=== PATIENT | female | born 1930 | race African-American/Black ===

== ENCOUNTER 2017-07-25 15:03 | Observation (INO) | payer OTHER ==
--- NOTE | 2017-07-25 15:15 | PDOC ---
History of Present Illness - General Stated Complaint: CHEST PAIN Time Seen by Provider: 07/25/17 15:14 - History of Present Illness Initial Comments: 07/25/17 15:14 Ms. Delaney is an 87 yo female w/ pmh of HTN who presents complaining of a 6 day history of left sided chest pain. She reports the pain got worse last night however subsequently has mostly resolved. She localizes the pain to under her left breast. Ms. Delaney also reports a 1 month history of dyspnea on exertion as well. The patient denies shortness of breath, headache and dizziness. Denies fever, chills, nausea, vomit, diarrhea and constipation. Denies dysuria, frequency, urgency and hematuria. Allergies: NKDA Past History - Past Medical History Allergies/Adverse Reactions: Allergies Allergy/AdvReac Type Severity Reaction Status Date / Time No Known Allergies Allergy Verified 07/25/17 16:32 Home Medications: Ambulatory Orders Acetaminophen [Tylenol] 325 mg PO Q6H PRN 07/26/17 Aspirin 81 mg PO DAILY 07/26/17 Lisinopril-Hctz 20-25 mg Tab 1 tab PO DAILY 07/26/17 Review of Systems - Review of Systems Comments:: 07/25/17 15:15 GENERAL/CONSTITUTIONAL: No fever or chills. No weakness. HEAD, EYES, EARS, NOSE AND THROAT: No change in vision. No ear pain or discharge. No sore throat. CARDIOVASCULAR: +Chest pain as described. +Dyspnea on exertion RESPIRATORY: No cough, wheezing, or hemoptysis. GASTROINTESTINAL: No nausea, vomiting, diarrhea or constipation. GENITOURINARY: +Increased urinary frequency lately MUSCULOSKELETAL: No joint or muscle swelling or pain. No neck or back pain. SKIN: No rash NEUROLOGIC: No headache, vertigo, loss of consciousness, or change in strength/ sensation. ENDOCRINE: No increased thirst. No abnormal weight change HEMATOLOGIC/LYMPHATIC: No anemia, easy bleeding, or history of blood clots. ALLERGIC/IMMUNOLOGIC: No hives or skin allergy. *Physical Exam - Physical Exam Comments: 07/25/17 15:15 GENERAL: Awake, alert, and fully oriented, in no acute distress HEAD: No signs of trauma, normocephalic, atraumatic EYES: PERRLA, EOMI, sclera anicteric, conjunctiva clear ENT: Auricles normal inspection, hearing grossly normal, nares patent, oropharynx clear without exudates. Moist mucosa NECK: Normal ROM, supple, no lymphadenopathy, JVD, or masses LUNGS: No distress, speaks full sentences, clear to auscultation bilaterally HEART: Regular rate and rhythm, normal S1 and S2, no murmurs, rubs or gallops, peripheral pulses normal and equal bilaterally. ABDOMEN: +Left upper quadrant TTP. Soft, normoactive bowel sounds. No guarding, no rebound. No masses EXTREMITIES: Normal inspection, Normal range of motion, no edema. No clubbing or cyanosis. NEUROLOGICAL: Cranial nerves II through XII grossly intact. Normal speech, normal gait, no focal sensorimotor deficits SKIN: Warm, Dry, normal turgor, no rashes or lesions noted. ED Treatment Course - LABORATORY CBC & Chemistry Diagram: 07/25/17 15:50 07/25/17 15:50 Medical Decision Making - Medical Decision Making 07/25/17 18:55 Ms. Delaney is an 87 yo female w/ pmh as described who presents for evaluation of abdominal pain. CT abdomen sent for evaluation. Patient signed out to Dr. Forte for further evaluation. *DC/Admit/Observation/Transfer Diagnosis at time of Disposition: Chest pain Qualifiers: Chest pain type: unspecified Qualified Code(s): R07.9 - Chest pain, unspecified - Discharge Dispostion Decision to Admit order: Yes - Referrals - Patient Instructions - Post Discharge Activity
[2017-07-25] MEDS ORDERED: SODIUM CHLORIDE 1,000 ML IV STA (15:31)
[2017-07-25] MEDS ORDERED: FAMOTIDINE 20 MG/50 ML IVPB 20 MG/50 ML MG IVPB ONE (15:31)
[2017-07-25] MEDS ORDERED: ACETAMINOPHEN 325 MG TABLET (FP) PO ONE (15:31)
[2017-07-25] MEDS ORDERED: ACETAMINOPHEN 500 MG TABLET (FP) PO ONE (15:31)
--- NOTE | 2017-07-25 15:36 | PDOC ---
Attending Attestation - HPI HPI: 07/25/17 17:22 The patient is an 87-year-old female, with a significant past medical history of HTN, who presents to the ED with 1 week of left-sided chest pain. The patient describes the pain as constant, exacerbated with walking, with associated left ankle swelling. The patient reports that she recently traveled 2 hours on bus from [place]. The patient denies any shortness of breath or palpitations. She denies any fever, chills, nausea, vomiting, diarrhea, or abdominal pain. Allergies: NKA - Physicial Exam PE: 07/25/17 17:43 GENERAL: The patient is in no acute distress. HEAD: Normal with no signs of trauma. EYES: PERRLA, EOMI, sclera anicteric, conjunctiva clear. ENT: Ears normal, nares patent, oropharynx clear without exudates. Moist mucous membranes. NECK: Normal range of motion, supple without lymphadenopathy, JVD, or masses. LUNGS: Breath sounds equal, clear to auscultation bilaterally. No wheezes, and no crackles. HEART:Regular rate and rhythm, normal S1 and S2 without murmur, rub or gallop. ABDOMEN: Soft, nontender, normoactive bowel sounds. No guarding, no rebound. EXTREMITIES: Normal range of motion, no edema. No clubbing or cyanosis. No erythema, or tenderness. NEUROLOGICAL: Cranial nerves II through XII grossly intact. Normal speech. No focal neurological deficits. MUSCULOSKELETAL: Back non-tender to palpation, no CVA tenderness SKIN: Warm, Dry, normal turgor, no rashes or lesions noted. <Jenelle Head - Last Filed: 07/25/17 17:41> - Resident Resident Name: Chris Ca - ED Attending Attestation I have performed the following: I have examined & evaluated the patient, The case was reviewed & discussed with the resident, I agree w/resident's findings & plan, Exceptions are as noted - Medical Decision Making 07/25/17 15:32 EKG: NSR, rate of 97 bpm, [place] nml, no ST elevations or depressions, T waves upright 07/25/17 18:32 Miss Delaney is an 87-year-old female with a history of hypertension who presents emergency department with a complaint of left-sided chest pain. Patient states his symptoms have been present for the past approximately one week. Her symptoms have been bearable over the past week. Her chest pain has been relatively constant, but it did not prevent her from doing her daily activities. She describes her pain as 5/10. Since last night, her chest pain worsened significantly. She was uncomfortable all night, unable to sleep. She states when she has no chest pain that radiates to the back and jaw. No nausea, sometimes she short of breath. Symptoms are worse with exertion. No fevers, chills, cough. Patient traveled recently from [place], she approximates it was a 2 hour trip via car. She notices no new lower extremity edema. She has no prior cardiac history. Patient has had no positive stress tests in the past. Her examination is unremarkable. Will do basic labs. Anticipate this patient will need to stay for rule out OK. Fluid repeat labs, would do cardiology consult <Myriam Joseph - Last Filed: 07/27/17 08:10> Heart Score/ECG Review - History History: Moderately suspicious - Electrocardiogram EKG: Normal - Age Age: >/= 65 - Risk Factors Risk Factors Heart Score: Yes Hx Hypertension Based on the list above the patient has:: 1-2 risk factors - Troponin Troponin: </= normal limit - Score Heart Score - Total: 4 <Bobby Forte - Last Filed: 07/25/17 19:55> Attestations - Attestations 07/25/17 17:44 Documentation prepared by Jenelle Head, acting as claim review medical director for Myriam Joseph MD. <Jenelle Head - Last Filed: 07/25/17 17:41>
[2017-07-25] MEDS ORDERED: ACETAMINOPHEN 325 MG TABLET (FP) ONE (16:17)
[2017-07-25 16:34] LABS: EOS % 3.3 % (0-4.5); HEMOGLOBIN 13.4 GM/dL (10.7-15.3); LYMPH % 39.3 % (8-40); MCH 30.8 pg (25.7-33.7); MCHC 33.5 g/dl (32.0-36.0); MEAN CELL VOLUME 92.2 fl (80-96); MEAN PLT VOLUME 11.3 fl (7.5-11.1); MONO % 9.9 % (3.8-10.2); NEUT % 46.5 % (42.8-82.8); PLATELET COUNT 176 K/MM3 (134-434); RBC 4.34 M/mm3 (3.60-5.2); RDW 14.3 % (11.6-15.6); WHITE BLOOD COUNT 5.6 K/mm3 (4.0-10.0)
[2017-07-25 16:39] LABS: URINE APPEARANCE CLEAR; URINE BILIRUBIN NEGATIVE (<2.0 mg/dL); URINE BLOOD 1+ (NEGATIVE); URINE COLOR STRAW; URINE GLUCOSE (UA) NEGATIVE (NEGATIVE); URINE KETONE NEGATIVE (NEGATIVE); URINE LEUK ESTERASE NEGATIVE (NEGATIVE); URINE NITRITE NEGATIVE (NEGATIVE); URINE PROTEIN NEGATIVE (NEGATIVE); URINE UROBILINOGEN NEGATIVE mg/dL (0.2-1.0)
[2017-07-25 17:10] LABS: ALBUMIN 4.2 g/dl (3.4-5.0); ALK PHOS 66 U/L (45-117); ANION GAP 7 (8-16); BILIRUBIN,TOTAL 0.3 mg/dL (0.2-1.0); BLOOD UREA NITROGEN 26 mg/dL (7-18); CALCIUM 9.2 mg/dL (8.5-10.1); CHLORIDE 104 mmol/L (98-107); CO2 27 mmol/L (21-32); CREATININE 1.1 mg/dL (0.55-1.02); GLUCOSE,RANDOM 85 mg/dL (74-106); SGPT/ALT 28 U/L (12-78); SODIUM 138 mmol/L (136-145); TOT PROT 7.6 g/dl (6.4-8.2)
[2017-07-25 17:15] LABS: POTASSIUM 3.8 mmol/L (3.5-5.1); SGOT/AST 19 U/L (15-37)
[2017-07-25 17:26] LABS: EPI CELLS RARE /HPF (FEW); URINE MUCUS RARE
[2017-07-25] MEDS ORDERED: IBUPROFEN 600 MG TABLET (FP) PO ONE (19:14)
[2017-07-25 19:30] LABS: PLATELET ESTIMATE ADEQUATE
--- NOTE | 2017-07-25 19:59 | PDOC ---
History of Present Illness - General Chief Complaint: Chest Pain Stated Complaint: CHEST PAIN Time Seen by Provider: 07/25/17 15:14 Past History - Past Medical History Allergies/Adverse Reactions: Allergies Allergy/AdvReac Type Severity Reaction Status Date / Time No Known Allergies Allergy Verified 07/25/17 16:32 Home Medications: Ambulatory Orders Unobtainable 07/25/17 COPD: No HTN: Yes - Surgical History Abdominal Surgery: Yes (hernia) - Suicide/Smoking/Psychosocial Hx Smoking History: Never smoked Have you smoked in the past 12 months: No Information on smoking cessation initiated: No Hx Alcohol Use: No Drug/Substance Use Hx: No Substance Use Type: None *Physical Exam - Vital Signs Last Vital Signs Temp Pulse Resp BP Pulse Ox 99 F 80 18 151/90 98 07/25/17 15:14 07/25/17 19:20 07/25/17 19:20 07/25/17 19:20 07/25/17 19:20 ED Treatment Course - LABORATORY CBC & Chemistry Diagram: 07/25/17 15:50 07/25/17 15:50 - ADDITIONAL ORDERS Additional order review: Laboratory Results 07/25/17 07/25/17 07/25/17 15:50 15:50 15:50 Sodium 138 Potassium 3.8 Chloride 104 Carbon Dioxide 27 Anion Gap 7 L BUN 26 H Creatinine 1.1 H Creat Clearance w eGFR 47.21 Random Glucose 85 Calcium 9.2 Total Bilirubin 0.3 AST 19 ALT 28 Alkaline Phosphatase 66 Creatine Kinase 173 Creatine Kinase Index 1.2 CK-MB (CK-2) 2.19 Troponin I < 0.02 Total Protein 7.6 Albumin 4.2 Lipase 273 Urine Color Urine Appearance Urine pH Ur Specific [place] Urine Protein Urine Glucose (UA) Urine Ketones Urine Blood Urine Nitrite Urine Bilirubin Urine Urobilinogen Ur Leukocyte Esterase Urine WBC (Auto) Urine RBC (Auto) Ur Epithelial Cells Urine Mucus 07/25/17 15:50 Sodium Potassium Chloride Carbon Dioxide Anion Gap BUN Creatinine Creat Clearance w eGFR Random Glucose Calcium Total Bilirubin AST ALT Alkaline Phosphatase Creatine Kinase Creatine Kinase Index CK-MB (CK-2) Troponin I Total Protein Albumin Lipase Urine Color Straw Urine Appearance Clear Urine pH 6.0 Ur Specific [place] 1.014 Urine Protein Negative Urine Glucose (UA) Negative Urine Ketones Negative Urine Blood 1+ H Urine Nitrite Negative Urine Bilirubin Negative Urine Urobilinogen Negative Ur Leukocyte Esterase Negative Urine WBC (Auto) <1 Urine RBC (Auto) 1 Ur Epithelial Cells Rare Urine Mucus Rare 07/25/17 15:50 RBC 4.34 MCV 92.2 MCHC 33.5 RDW 14.3 MPV 11.3 H Neutrophils % 46.5 Lymphocytes % 39.3 Monocytes % 9.9 Eosinophils % 3.3 Basophils % 1.0 - Medications Given in the ED: ED Medications Discontinued Medications Generic Name Dose Route Start Last Admin Trade Name Srinivas PRN Reason Stop Dose Admin Acetaminophen 975 mg 07/25/17 15:31 07/25/17 16:33 Tylenol - PO 07/25/17 15:32 975 mg ONCE ONE Administration Acetaminophen 975 mg 07/25/17 15:31 07/25/17 17:05 Tylenol - PO 07/25/17 15:32 Not Given ONCE ONE Famotidine/Sodium Chloride 20 mg in 50 mls @ 100 mls/hr 07/25/17 15:31 16:33 Pepcid 20 Mg Premixed Ivpb - IVPB 07/25/17 16:00 100 mls/hr ONCE ONE Administration Sodium Chloride 1,000 mls @ 1,000 mls/hr 07/25/17 15:31 07/25/17 16:33 Normal Saline - IV 07/25/17 16:30 1,000 mls/hr ASDIR STA Administration *DC/Admit/Observation/Transfer Diagnosis at time of Disposition: Chest pain - Discharge Dispostion Decision to Admit order: Yes - Referrals - Patient Instructions - Post Discharge Activity
--- NOTE | 2017-07-25 21:05 | HP ---
Admitting History and Physical - Primary Care Physician PCP: Thomas Rosales - Admission Chief Complaint: chest pain History of Present Illness: 87-year-old female, with a significant past medical history of HTN, who presents to the ED with 1 week of left-sided chest pain. The patient describes the pain as constant, exacerbated with walking, with associated left ankle swelling. The patient reports that she recently traveled 2 hours on bus from [place]. The patient denies any shortness of breath or palpitations. - Past Medical History Cardiovascular: Yes: HTN - Smoking History Smoking history: Never smoked Have you smoked in the past 12 months: No - Alcohol/Substance Use Hx Alcohol Use: No Home Medications - Allergies Allergies/Adverse Reactions: Allergies Allergy/AdvReac Type Severity Reaction Status Date / Time No Known Allergies Allergy Verified 07/25/17 16:32 - Home Medications Home Medications: Ambulatory Orders Acetaminophen [Tylenol] 325 mg PO Q6H PRN 07/26/17 Aspirin 81 mg PO DAILY 07/26/17 Lisinopril-Hctz 20-25 mg Tab 1 tab PO DAILY 07/26/17 Physical Examination Vital Signs: Vital Signs Temperature 99 F 07/25/17 15:14 Pulse Rate 80 07/25/17 19:20 Respiratory Rate 18 07/25/17 19:20 Blood Pressure 151/90 07/25/17 19:20 O2 Sat by Pulse Oximetry (%) 98 07/25/17 19:20 Constitutional: Yes: No Distress HENT: Yes: Atraumatic Neck: Yes: Supple Cardiovascular: Yes: Regular Rate and Rhythm Respiratory: Yes: CTA Bilaterally Gastrointestinal: Yes: Normal Bowel Sounds Extremities: Yes: WNL Edema: No Peripheral Pulses WNL: Yes Neurological: Yes: Alert, Oriented Labs: CBC, BMP 07/25/17 15:50 07/25/17 15:50 Imaging - Results X-ray: Report Reviewed Cat Scan: Report Reviewed Problem List - Problems (1) HTN (hypertension) Assessment/Plan: monitor Code(s): I10 - ESSENTIAL (PRIMARY) HYPERTENSION (2) Chest pain Assessment/Plan: tele monitoring fu cardiac enzymes cardiology consult Code(s): R07.9 - CHEST PAIN, UNSPECIFIED Qualifiers: Chest pain type: unspecified Qualified Code(s): R07.9 - Chest pain, unspecified Assessment/Plan Laboratory Tests 07/25/17 07/25/1707/25/18 15:50 15:50 15:50 WBC 5.6 RBC 4.34 Hgb 13.4 Hct 40.0 MCV 92.2 MCH 30.8 MCHC 33.5 RDW 14.3 Plt Count 176 MPV 11.3 H Absolute Neuts (auto) 2.6 Neutrophils % 46.5 Lymphocytes % 39.3 Monocytes % 9.9 Eosinophils % 3.3 Basophils % 1.0 Nucleated RBC % 0 Platelet Estimate Adequate Platelet Comment Large platelets Sodium 138 Potassium 3.8 Chloride 104 Carbon Dioxide 27 Anion Gap 7 L BUN 26 H Creatinine 1.1 H Creat Clearance w eGFR 47.21 Random Glucose 85 Calcium 9.2 Total Bilirubin 0.3 AST 19 ALT 28 Alkaline Phosphatase 66 Creatine Kinase Creatine Kinase Index CK-MB (CK-2) Troponin I Total Protein 7.6 Albumin 4.2 Lipase Urine Color Straw Urine Appearance Clear Urine pH 6.0 Ur Specific [place] 1.014 Urine Protein Negative Urine Glucose (UA) Negative Urine Ketones Negative Urine Blood 1+ H Urine Nitrite Negative Urine Bilirubin Negative Urine Urobilinogen Negative Ur Leukocyte Esterase Negative Urine WBC (Auto) <1 Urine RBC (Auto) 1 Ur Epithelial Cells Rare Urine Mucus Rare 07/25/17 07/25/17 15:50 15:50 WBC RBC Hgb Hct MCV MCH MCHC RDW Plt Count MPV Absolute Neuts (auto) Neutrophils % Lymphocytes % Monocytes % Eosinophils % Basophils % Nucleated RBC % Platelet Estimate Platelet Comment Sodium Potassium Chloride Carbon Dioxide Anion Gap BUN Creatinine Creat Clearance w eGFR Random Glucose Calcium Total Bilirubin AST ALT Alkaline Phosphatase Creatine Kinase 173 Creatine Kinase Index 1.2 CK-MB (CK-2) 2.19 Troponin I < 0.02 Total Protein Albumin Lipase 273 Urine Color Urine Appearance Urine pH Ur Specific [place] Urine Protein Urine Glucose (UA) Urine Ketones Urine Blood Urine Nitrite Urine Bilirubin Urine Urobilinogen Ur Leukocyte Esterase Urine WBC (Auto) Urine RBC (Auto) Ur Epithelial Cells Urine Mucus Active Medications Generic Name Dose Route Start Last Admin Trade Name Freq PRN Reason Stop Dose Admin Acetaminophen 650 mg 07/25/17 21:07 Tylenol - PO Q6H PRN FEVER
[2017-07-25] MEDS ORDERED: ACETAMINOPHEN 325 MG TABLET (FP) PO PRN (21:07)
[2017-07-26 06:40] VITALS: BMI 33.6
[2017-07-26 06:51] LABS: EOS % 4.8 % (0-4.5); HEMATOCRIT 36.4 % (32.4-45.2); HEMOGLOBIN 12.2 GM/dL (10.7-15.3); LYMPH % 44.3 % (8-40); MCH 30.8 pg (25.7-33.7); MCHC 33.6 g/dl (32.0-36.0); MEAN CELL VOLUME 91.7 fl (80-96); MEAN PLT VOLUME 10.5 fl (7.5-11.1); MONO % 10.2 % (3.8-10.2); NEUT % 39.7 % (42.8-82.8); PLATELET COUNT 157 K/MM3 (134-434); RBC 3.97 M/mm3 (3.60-5.2); RDW 14.4 % (11.6-15.6); WHITE BLOOD COUNT 4.9 K/mm3 (4.0-10.0)
[2017-07-26 07:34] LABS: ALBUMIN 3.7 g/dl (3.4-5.0); ANION GAP 7 (8-16); BILIRUBIN,TOTAL 0.4 mg/dL (0.2-1.0); BLOOD UREA NITROGEN 23 mg/dL (7-18); CALCIUM 8.9 mg/dL (8.5-10.1); CHLORIDE 104 mmol/L (98-107); CO2 28 mmol/L (21-32); GLUCOSE,RANDOM 88 mg/dL (74-106); POTASSIUM 3.5 mmol/L (3.5-5.1); SGOT/AST 14 U/L (15-37); SGPT/ALT 25 U/L (12-78); SODIUM 139 mmol/L (136-145)
[2017-07-26 07:35] LABS: ALK PHOS 54 U/L (45-117); TOT PROT 6.8 g/dl (6.4-8.2)
[2017-07-26] MEDS ORDERED: PNEUMOC 13-VAL CONJ-DIP CRM/PF 0.5 ML DISP.SYRIN IM ONE (10:00)
--- NOTE | 2017-07-26 11:31 | EKG ---
Test Reason : Blood Pressure : / mmHG Vent. Rate : 097 BPM Atrial Rate : 097 BPM P-R Int : 192 ms QRS Dur : 080 ms QT Int : 350 ms P-R-T Axes : 037 002 004 degrees QTc Int : 444 ms POOR DATA QUALITY, INTERPRETATION MAY BE ADVERSELY AFFECTED NORMAL SINUS RHYTHM NORMAL ECG WHEN COMPARED WITH ECG OF 07-OCT-2009 23:33, NO SIGNIFICANT CHANGE WAS FOUND Confirmed by BRIDGER MILAN, EUFEMIA ([id number]) on 07/26/2017 11:30:24 AM Referred By: Confirmed By:EUFEMIA SPARKS MD
--- NOTE | 2017-07-26 13:21 | CON.CARD ---
Consult Consult Specialty:: Cardiology Referred by:: Dr. Rosales Reason for Consultation:: Chest pain, sob - History of Present Illness Chief Complaint: chest pain sob History of Present Illness: 87 year old woman pmh HTN admitted with c/o chest pain and sob. Pt states that for the past few weeks she has had intermittent episodes of chest pain. described L sided under the left breast/axilla, not associated with exertion, exacerbated by L arm movements with no associated symptoms. Also notes several months of dyspnea on exertion that occurs when walking upstairs or walking approximately 1 block. She has noticed intermittent LE edema which is not present currently. Currently denies chest pain but when raising her L arm during the exam it reproduces the pain. No pnd, orthopnea. No palpitations, lightheadedness, dizziness, syncope or near syncope. - History Source History Provided By: Patient, Family Member Limitations to Obtaining History: No Limitations - Past Medical History Cardio/Vascular: Yes: HTN ...: No - Alcohol/Substance Use Hx Alcohol Use: No - Smoking History Smoking history: Never smoked Have you smoked in the past 12 months: No Home Medications - Allergies Allergies/Adverse Reactions: Allergies Allergy/AdvReac Type Severity Reaction Status Date / Time No Known Allergies Allergy Verified 07/25/17 16:32 - Home Medications Home Medications: Ambulatory Orders Acetaminophen [Tylenol] 325 mg PO Q6H PRN 07/26/17 Aspirin 81 mg PO DAILY 07/26/17 Lisinopril-Hctz 20-25 mg Tab 1 tab PO DAILY 07/26/17 Family Disease History - Family Disease History Family History: Denies Review of Systems - Review of Systems Constitutional: denies: No Symptoms, Chills, Diaphoresis, Fever, Lethargy, Loss of Appetite, Malaise, Night Sweats, Unintentional Wgt. Loss, Weakness, Other Eyes: denies: No Symptoms, Blind Spots, Blurred Vision, Double Vision, Eye Pain , Floaters, Photophobia, Recent Change in Vision, Other HENT: denies: No Symptoms, Difficult Swallowing, Ear Discharge, Ear Pain, Epistaxis, Gingival Bleeding, Hearing Loss, Mouth Swelling, Nasal Congestion, Ocular Prosthesis, Throat Pain, Toothache, Ringing in Ears, Other Neck: denies: No Symptoms, Decreased ROM, Lumps, Pain on Movement, Stiffness, Swollen Glands, Tenderness, Other Cardiovascular: reports: Chest Pain, Edema, Shortness of Breath. denies: Palpitations Respiratory: reports: Exercise Intolerance, SOB on Exertion. denies: No Symptoms, Cough, Hemoptysis, Orthopnea, PND, Snoring, SOB, Wheezing, Other Gastrointestinal: denies: No Symptoms, Abdominal Pain, Bloating, Constipation, Diarrhea, Dysphagia, Indigestion, Melena, Nausea, Rectal Bleeding, Vomiting, Vomiting Blood, Other Genitourinary: denies: No Symptoms, Burning, Discharge, Dysuria, Flank Pain, Frequency, Hematuria, Incontinence, Lesions, Menses, Pain, Testicular Mass, Testicular Pain, Testicular Swelling, Urgency, Vaginal Bleeding, Other Musculoskeletal: denies: No Symptoms, Back Pain, Crepitus, Decreased ROM, Extremity Pain, Joint Pain, Joint Swelling, Muscle Pain, Muscle Cramps, Muscle Weakness, Other Integumentary: denies: No Symptoms, Blister, Bruising, Change in Color, Eczema, Erythema, Incision, Lesions, Lump, Pallor, Pruritis, Rash, Wound, Other Neurological: denies: No Symptoms, Change in LOC, Change in Speech, Confusion, Dizziness, Headache, Incoordination, Numbness, Parasthesia, Pre-Existing Deficit , Seizure, Syncope, Tremors, Unsteady Gait, Weakness, Other Endocrine: denies: No Symptoms, Excessive Sweating, Flushing, Increased Hunger, Increased Thirst, Intolerance to Cold, Intolerance to Heat, Unexplained Weight Gain, Unexplained Weight Loss, Other Hematology/Lymphatic: denies: No Symptoms, Easily Bruised, Excessive Bleeding, Swollen Glands, Other Psychiatric: denies: No Symptoms, Altered Sleep Pattern, Anxiety, Depression, Hallucinations, Panic, Paranoia, Suicidal, Other - Risk Factors Known Risk Factors: Yes: Age, Hypertension Vital Signs: Vital Signs Temperature 98 F 07/26/17 09:00 Pulse Rate 64 07/26/17 09:00 Respiratory Rate 18 07/26/17 09:00 Blood Pressure 148/94 07/26/17 09:00 O2 Sat by Pulse Oximetry (%) 97 07/26/17 09:00 Constitutional: Yes: No Distress, Calm, Obese Eyes: Yes: WNL, Conjunctiva Clear, EOM Intact HENT: Yes: WNL, Atraumatic, Normocephalic Neck: Yes: WNL, Supple, Trachea Midline Respiratory: Yes: WNL, Regular, CTA Bilaterally. No: Rales, Rhonchi, Wheezes Gastrointestinal: Yes: WNL, Normal Bowel Sounds, Soft. No: Distention, Tenderness Renal/: Yes: WNL Cardiovascular: Yes: WNL, Regular Rate and Rhythm. No: Bradycardia, Tachycardia , Pulse Irregular, Gallop, Rub, Varicosities JVD: No Carotid Bruit: No PMI: Non-Displaced Heart Sounds: Yes: S1, S2. No: Split S2, S3, S4, Clicks, Gallop, Rub, Bruit Murmur: No: Systolic Murmur, Diastolic Murmur Musculoskeletal: Yes: WNL Extremities: Yes: WNL Edema: No Peripheral Pulses WNL: Yes Peripheral Pulses: 2+ Left Doralis Pedis, 2+ Right Dorsalis Pedis Integumentary: Yes: WNL Neurological: Yes: WNL, Alert, Oriented, Cran Nerves II-XII Intact Psychiatric: Yes: Alert, Oriented - Other Data Labs, Other Data: CBC, BMP 07/26/17 06:20 07/26/17 06:20 Troponin, BNP 07/25/17 07/25/17 07/26/17 15:50 23:30 06:20 Troponin I < 0.02 < 0.02 < 0.02 07/26/17 06:20 Troponin I Cancelled Troponin, BNP 07/25/17 07/25/17 07/26/17 15:50 23:30 06:20 Troponin I < 0.02 < 0.02 < 0.02 07/26/17 06:20 Troponin I Cancelled ekg-NSR 97bpm, no sig St abnl Echo: Report Reviewed Imaging - Results Chest X-ray: Report Reviewed, Image Reviewed EKG: Report Reviewed, Image Reviewed Other: Report Reviewed, Image Reviewed (tele-nsr, no arrhythmias) Assessment/Plan 87 year old woman pmh HTN admitted with c/o chest pain and sob. Pt states that for the past few weeks she has had intermittent episodes of chest pain. described L sided under the left breast/axilla, not associated with exertion, exacerbated by L arm movements with no associated symptoms. Also notes several months of dyspnea on exertion that occurs when walking upstairs or walking approximately 1 block. She has noticed intermittent LE edema which is not present currently. Currently denies chest pain but when raising her L arm during the exam it reproduces the pain. No pnd, orthopnea. No palpitations, lightheadedness, dizziness, syncope or near syncope. Chest pain-atypical, unlikely ACS -cardiac enzymes wnl -ekg showed no ischemia -no arrhythmias on tele -ECHO 07/26/17 showed normal LV and RV size and function, no sig valvular abnl -called and discussed with pts daughter and with pt, she wishes to go home -at this time pt is acceptable for discharge from a cardiac standpoint, with a plan for close outpatient fup and further work up as needed -will consider stress test as outpatient HTN-severely uncontrolled on presentation but improved and now mildly elevated -on lisinopril/hctz at home -did have mildly elevated bun/creat on admission, possible mild intravascular depletion -can resume home anti-HTN med on discharge and encourage adequate fluid intake -would consider stopping HCTZ component to avoid dehydration, this can be done as outpatient Please call with any additional questions.
--- NOTE | 2017-07-26 16:31 | DS ---
Physical Examination Vital Signs: Vital Signs Temperature 98.5 F 07/26/17 14:00 Pulse Rate 72 07/26/17 14:00 Respiratory Rate 18 07/26/17 09:00 Blood Pressure 164/99 07/26/17 14:00 O2 Sat by Pulse Oximetry (%) 97 07/26/17 09:00 Constitutional: Yes: No Distress HENT: Yes: Atraumatic Neck: Yes: Supple Cardiovascular: Yes: Regular Rate and Rhythm Respiratory: Yes: CTA Bilaterally Gastrointestinal: Yes: Normal Bowel Sounds Extremities: Yes: WNL Neurological: Yes: Alert, Oriented Labs: CBC, BMP 07/26/17 06:20 07/26/17 06:20 Discharge Summary Reason For Visit: CHEST PAIN Current Active Problems Chest pain (Acute) HTN (hypertension) (Acute) - Instructions - Home Medications Comprehensive Discharge Medication List: Ambulatory Orders Acetaminophen [Tylenol] 325 mg PO Q6H PRN 07/26/17 Aspirin 81 mg PO DAILY 07/26/17 Lisinopril-Hctz 20-25 mg Tab 1 tab PO DAILY 07/26/17 me home
[2017-07-26 17:55] VITALS: BP 153/81; PULSE 71; TEMP 98.7
== END 2017-07-26 19:28 | disposition home or self-care (01) ==
LOC: JER 15:03 → JERBED 20:21 → J4W 07-26 00:30
PROVIDERS: ADMIT Internal Medicine; ATTEND Internal Medicine
PROC: 3E033GC Introduction of Other Therapeutic Substance into Peripheral Vein, Percutaneous Approach (ICD-10-PCS; principal; 2017-07-25)
PROC: 3E0337Z Introduction of Electrolytic and Water Balance Substance into Peripheral Vein, Percutaneous Approach (ICD-10-PCS; 2017-07-25)
DX: R07.89 Other chest pain (principal); I10 Essential (primary) hypertension; Z79.82 Long term (current) use of aspirin
CPT/HCPCS: 36415; 71045-TC-FY; 74177-TC; 80053; 81003; 81015; 82550; 82553; 83690; 84484; 85025; 87086; 93005; 93010; 93306-TC; 96365; 99285-25; G0378; J7030